=== PATIENT | male | born 1965 | race Caucasian/White ===

== ENCOUNTER 2016-11-09 10:46 | Emergency (ER) | payer OTHER ==
[~2016-11-09 10:46] MED LIST: ASA CHILDREN'S81 MG PO; ASCORBIC ACID500 MG PO; BRILINTA90 MG PO; CALCIUM + VITA1 EACH PO; CELEXA DPS20 MG PO; CENTRUM SILVER1 EAC2 PO; COREG DPS12.5 MG PO; COREG DPS3.125 MG PO; DESYREL DPS150 MG PO; EFFIENT10 MG PO; FISH OIL 1,2001 EAC2 PO; FLONASE 0.05% D16 GM NS; FOLVITE-DPS1 MG PO; HYDRODIURIL-DPS25 MG PO; IMDUR DPS60 MG PO; LIPITOR DPS40 MG PO; NEURONTIN DPS300 MG PO; NITROSTAT0.4 MG SL; NORVASC DPS10 MG PO; PEPCID DPS20 MG PO; PRESERVISION A1 EAC2 PO; PRILOSEC DPS20 MG PO; RELAFEN DPS750 MG PO; VITAMIN B1100 MG PO; ZANAFLEX4 MG PO; ZESTRIL DPS10 MG PO
--- NOTE | 2016-11-11 16:02 | ER ---
ADMIT: 11/09/2016 RM/LOC: ER [facility] MR#: [id number] [facility] [address] [place] [id number] [address] [place] [place] [id number] Emergency Room Report SEX: M AGE: 51 : 1965 DATE: 11/09/2016 TIME: 1046 hours. Please refer to my T-sheet for complete H and P. HISTORY OF PRESENT ILLNESS: Briefly, the patient is a 51-year-old who comes in with a swollen face. He has had this several times in the past. They have never known exactly what caused this, he thought his ibuprofen. He did take Advil the day but he said he has been able to take that before. No shortness of breath. No problems swallowing. PHYSICAL EXAMINATION: VITAL SIGNS: Stable. He is afebrile. HEENT: He has angioedema of his face, not involving his tongue. LUNGS: Clear. HEART: Regular. ABDOMEN: Soft. SKIN: No rash, otherwise. EMERGENCY DEPARTMENT COURSE: We gave him Decadron 20 IM. He is ready for discharge. I had a long discussion with him. ASSESSMENT: Angioedema of face. Etiology is uncertain. I reviewed through his medications. He is on TARIK inhibitor, and he did take the Advil some. PLAN: Stop the Tarik, stop the Advil. Prednisone 20 b.i.d. for 5 days. Benadryl [id number]. Return if worse and follow up with his primary this week. I recommended an dairy laboratory technician to follow up also. Christ Connolly MD/ krunal JOB #: [id number] CC: Christ Connolly MD, Attending Physician Morris Chavez MD, Family Physician
== END 2016-11-09 11:35 | disposition home or self-care (01) ==
LOC: ER 10:46
DX: T78.3XXA Angioneurotic edema, initial encounter (principal); I10 Essential (primary) hypertension; E78.5 Hyperlipidemia, unspecified